=== PATIENT | male | born 1960 | race Caucasian/White ===

== ENCOUNTER 2023-05-10 01:17 | Day surgery (SDC) | payer BC, SELFPAY ==
[2023-05-08 14:45] VITALS: BMI 27.8
--- NOTE | 2023-05-08 14:49 | PC.NURSE ---
Report to the Outpatient Waiting Room, entrance under the green pavilion located off [facility], at time 0900 on date 05/10/23. Planned Procedure Time: 1000. Time changes happen often and if your time is changed the preop area will call you the afternoon before. - You and your visitor will be asked to self-screen and do not enter if you have any COVID symptoms. - A mask is optional within the hospital at this time. Patients may have LIGHT BREAKFAST. Take the following medications with a SIP of water the morning of surgery: N/A DO NOT STOP ANY OF YOUR OTHER PRESCRIPTION MEDICATIONS PRIOR TO SURGERY ?EXCEPT THE FOLLOWING Medications to discontinue per physician: N/A Date to take last dose: N/A Please no make-up, nail yi, hairspray, perfume, deodorant, or body powder the day of surgery. No jewelry (including any body piercings) or valuables the day of surgery, leave them at home. Please take a shower or bath the night before, or the morning of, surgery with an antibacterial soap. Wear comfortable, loose fitting clothing. - Jewelry must be removed prior to entering the operating room. Rings and piercings that are not removed may be cut off. - The hospital will not accept responsibility for valuables. - Please leave all valuables, including medications, at home the day of surgery. YOU MAY DRIVE YOURSELF HOME AFTER SURGERY. Follow any additional instructions given to you from your surgeon. If you or anyone in your household have experienced Covid symptoms in the past week, please notify your surgeon or the nurse liaison at the phone number below for possible testing. Telephone instructions given to PT - WADE RENNER and asked if any additional questions and then verbalized understanding. Patient advised to call surgeon office or pre surgery nurse liaison [phone] if any additional questions.
[2023-05-10] VITALS (12 sets, daily range): BP systolic 110–138; BP diastolic 61–78; PULSE 58–65; RESP 14–20; TEMP 36.3; O2SAT 92–99
--- NOTE | 2023-05-10 07:19 | WPDHPUPDATE1 ---
History and Physical Update Update Date/Time: 05/10/23 07:19 History and Physical has been reviewed, including an updated exam of the patient. There are NO changes in the patient's condition. Risks, benefits, and alternatives have been discussed and questions answered. Patient agrees to proceed with procedure.
[2023-05-10] MEDS: SODIUM BICARBONATE 8.4% 50 MEQ/50 ML SYRINGE IV PUSH (11:12)
--- NOTE | 2023-05-10 11:14 | SUR.OPER ---
Specimen taken from sterile field by Jace Hills RN. Handed to PCTPhuc. Phuc delivered to pathology staff, Natty. Reported transfer called to Jace Hills RN
[2023-05-10] MEDS: LIDOCAINE HCL 1% LOCAL INJ 10 ML VIAL 5 ML INFILTRATE (11:59)
[2023-05-10] MEDS: LIDO 1%/EPINEPHRINE 1:100,000 50 ML VIAL INFILTRATE (12:00)
--- NOTE | 2023-05-10 12:36 | P.OP_ITS ---
Procedure Note - Detailed Date of Procedure 05/10/23 Pre-op Diagnosis neoplsm unspec behav L nose Post-op Diagnosis Other (Basal cell carcinoma) Procedure Performed 1.4 cm excision of basal cell carcinoma left nose with frozen section and permanent section and local tissue transfer 3.5 sq cm Surgeon Hollis Brizuela MD Anesthesia Local Description of Procedure The ulcerated site on the patient's left nose was marked with his consent in the holding area. I repeated the plans for this procedure. He was then rolled to the operating room where he was placed supine on the operating table The time- out was held and confirmed. The area was prepped and draped in usual fashion. The site was carefully marked for excision. This area was widely infiltrated 1st with some 1% lidocaine plain followed by some buffered 1% lidocaine with epinephrine. Adequate anesthesia was obtained. The neoplasm was incised around the periphery and taken off through full-thickness of skin in the subcutaneous tissue. The most inferior aspect near the ala rim was marked with a suture for 12 o'clock. The pathologist revealed the the lesion was basal cell carcinoma. The margins were free but he thought the 1:00 o'clock aspect was very narrow. Because of that an additional margin running from 12-2 o'clock and approximately 1 mm in thickness was taken off for permanent section. The new 1:00 a.m. margin was inked. A bilobed flap was marked and incised, elevated and rotated. It was inset with 5 0 nylon and a running 5 0 chromic suture. There was minimal distortion to the left nasal ala for vestibule. The patient was discharged from the operating room in stable condition. He has a prescription for hydrocodone 5/325 4.. Also cephalexin 500 mg t.i.d. 15. He has instructions in wound care and follow-up Estimated Blood Loss 5 Drains No Packing No Pathology Yes Complications No immediate complications Condition Stable Disposition Same day
== END 2023-05-10 12:41 | disposition home or self-care (01) ==
PROVIDERS: PCP Family Medicine; Visit Provider Plastic Surgery
PROC: (CPT 14060; principal; 2023-05-10 10:00)
DX: C44.311 Basal cell carcinoma of skin of nose (principal); F17.200 Nicotine dependence, unspecified, uncomplicated
CPT/HCPCS: 14060; 88305; 88331; A9270

== ENCOUNTER 2023-12-10 14:58 | Emergency (ER) | payer BC, SELFPAY ==
[2023-12-10 15:12] VITALS: BP 102/56; PULSE 91; RESP 20; TEMP 37.9; O2SAT 95
[2023-12-10 15:38] LABS: EDUAAPPEAR Cloudy; EDUABILI Negative; EDUABLOOD 2+; EDUACOLOR1 Yellow; EDUAGLUCOSE Negative; EDUAKETONE Negative; EDUALEUKO 1+; EDUANITRATE Negative; EDUAPH 5.5; EDUAPROTEIN 1+; EDUAUROBILI 0.2
--- NOTE | 2023-12-10 15:41 | ED.MALEGU ---
HPI - Male Genitourinary General Chief complaint: Urogenital-Male Stated complaint: UTI Time Seen by Provider: 12/10/23 15:30 Source: patient Mode of arrival: ambulatory Limitations: no limitations History of Present Illness HPI Narrative: Hollis is a 63-year-old male patient presenting to the clinic today with complaints of possible urinary tract infection. He reports he is having burning with urination and urinary frequency. Has had history of frequent UTIs. States he has suffered from sepsis due to UTIs in the past. Last time he was in the hospital and was receiving IV antibiotics and was sent home with ciprofloxacin. Was seen at [facility] at that time. Reports he has had a fever highest of 102. Denies any back pain or abdominal pain. Related Data Allergies Allergy/AdvReac Type Severity Reaction Status Date / Time No Known Allergies Allergy Verified 12/10/23 15:24 Review of Systems Review of Systems: Pertinent positives per HPI. Patient denies any rash, headache, visual changes, dizziness, cough, runny nose, sore throat, shortness of breath, chest pain, palpitations, nausea, vomiting, diarrhea, constipation, abdominal pain, or any urinary issues. PMFSH Social History Social History Smoking packs per day: 1.25 Smoking cigarettes per day: 25.0 Years smoked: 50 Smoking pack-years: 62.50 Smoking status: Current every day smoker Tobacco type: cigarettes Alcohol intake: current Alcohol use details: RARE Substance use: never Substance use type: does not use Living arrangements: with family Spiritual care concerns: No Comments At the time of my signature, I reviewed and agree with the nursing past medical, surgical, social, and family history. There is no relevant family history pertinent to the patient complaint. Exam Narrative: General: Well-developed, well nourished, in no apparent distress. Head: Normocephalic, atraumatic. Cardio: Regular rate and rhythm, s1 and s2 normal, no murmur appreciated. Resp: Clear to auscultation bilaterally, no rhonchi, rales, wheezing or rubs. Abdomen: Soft, pliable, bowel sounds present in all quadrants, non-tender to palpation, no organomegly, no CVAT tenderness. Course Course Emergency Course: Portions of this record may have been created with voice recognition software. Level of Care: Express Care Visit Vital Signs Vital signs: Vital Signs Temperature 37.9 C H 12/10/23 15:12 Pulse Rate 91 12/10/23 15:12 Respiratory Rate 20 12/10/23 15:12 Blood Pressure 102/56 L 12/10/23 15:12 Pulse Oximetry 95 12/10/23 15:12 Oxygen Delivery Room Air 12/10/23 15:12 Temperature 37.9 C H 12/10/23 15:12 Pulse Rate 91 12/10/23 15:12 Respiratory Rate 20 12/10/23 15:12 Blood Pressure 102/56 L 12/10/23 15:12 Pulse Oximetry 95 12/10/23 15:12 Oxygen Delivery Room Air 12/10/23 15:12 Vital signs reviewed MDM - Male Genitourinary MDM Narrative Medical decision making narrative: At the time of visit patient is resting comfortably on the exam table. Patient appears to be nontoxic. Labs: Urinalysis is positive for leukocytes, protein, and blood. We will send urine for culture Plan: I suspect patient has urinary tract infection. Will send in prescription for ciprofloxacin. Supportive measures were discussed with the patient and they voiced understanding discharge instructions and agrees to treatment plan. Return precautions reviewed Differential Diagnosis Differential diagnosis: Likely urinary tract infection, urethritis, prostatitis, acute retention of urine and other (Cystitis) Lab Data Labs: Lab Results 12/10/23 Range/Units 15:35 POC Urine Color Yellow POC Urine Clarity Cloudy POC Urine pH 5.5 POC Ur Specif [place] 1.020 POC Urine Protein 1+ POC Ur Glucose (UA) Negative POC Urine Ketones Negative POC Urine B
== END 2023-12-10 15:44 | disposition home or self-care (01) ==
PROVIDERS: Emergency Provider Nurse Practitioner Family; PCP Family Medicine
DX: N39.0 Urinary tract infection, site not specified (principal); B96.20 Unspecified Escherichia coli [E. coli] as the cause of diseases classified elsewhere; F17.210 Nicotine dependence, cigarettes, uncomplicated
CPT/HCPCS: 81003; 87077; 87086; 87186; 99213; G0463